=== PATIENT | female | born 1995 | race Caucasian/White ===

== ENCOUNTER 2021-09-04 11:43 | Emergency (ER) | payer MEDICAID, SELFPAY ==
[2021-09-04 11:49] VITALS: BP 156/114; PULSE 104; RESP 18; TEMP 36.8; O2SAT 100; BMI 23.6
--- NOTE | 2021-09-04 12:49 | EX.ED.SAOD ---
HPI History of Present Illness Chief Complaint: Substance Abuse Informant: patient and spouse/S.O. Onset/Context/Timing Onset: Today Context: Gradual Onset Timing: Continuous Quality: Shaky Location: Generalized Worsened by: Nothing Relieved by: Nothing Associated Symptoms Associated Symptoms: Positive for tremor; Negative for vomiting*, diarrhea*, fever*, rash*, seizure, change in mental status, suicidal ideation and homicidal ideation Narrative Narrative: Patient presents with alcohol withdrawal symptoms. Patient has a history of alcohol abuse. Patient was in alcohol detox in [place] 3 months ago. Patient started drinking again recently. Patient drinks 1-1/2 fifths of vodka per day. Patient's last drink was approximately 1 hour prior to arrival. states that patient drank nearly 1/2 a gallon of vodka since last night. Patient feels shaky all over. Currently, the patient denies any suicidal homicidal ideations. states that the patient was pink slipped earlier this week but was later discharged. [facility] Medical History (Updated 09/04/21 @ 17:[address] Yonny Candelaria DO) Anxiety Depression Medical History no medical history no medical history Allergy/AdvReac Type Severity Reaction Status Date / Time No Known Allergies Allergy Verified 09/04/21 12:56 Surgical History no surgical history no surgical history Social History (Updated 09/04/21 @ 12:[address] Yonny Candelaria DO) Smoking Status: Current every day smoker tobacco type: cigarettes alcohol intake: current alcohol intake frequency: 3 or more drinks per day Alcohol type: hard liquor ROS ROS ED Constitutional Constitutional ED: Reports chills and subjective; Denies fever(s) Eyes Eyes: Denies blurry vision or change in vision ENT ENT ED: Denies rhinorrhea or sore throat Cardiovascular Cardiovascular: Denies chest pain or palpitations Respiratory/Chest Respiratory/Chest: Denies cough or dyspnea Gastrointestinal Gastrointestinal: Reports nausea; Denies vomiting Genitourinary Genitourinary ED: Denies dysuria or hematuria Musculoskeletal Musculoskeletal: Reports back pain; Denies neck pain Integumentary Denies abscess or rash Neurologic Neurologic: Denies headache(s) or weakness Psychiatric Psychiatric: Denies suicidal ideation or suicidal thoughts Allergic/Immunologic Allergic/Immunologic ED: Denies mouth swelling or urticaria EXAM Physical Exam Const Vital Signs: 09/04/21 11:49 09/04/21 14:29 Temperature 98.2 F Temperature Source Temporal Pulse Rate 104 H 88 Respiratory Rate 18 Blood Pressure 156/114 H 127/79 H Blood Pressure Mean 128 95 Pulse Ox 100 97 Oxygen Delivery Method Room Air Room Air Positive well nourished and well developed General Appearance ED: well developed HEENT Reports moist mucous membranes Neck supple and no JVD Resp normal respiratory effort and clear to auscultation bilaterally Cardio regular rhythm and no murmurs Rate: tachycardic GI normal to inspection, nondistended, normoactive bowel sounds and non-tender Palpation: soft Extremity normal to inspection General Extremety ED: Negative for edema or tenderness General Extremity: Negative for edema Neuro oriented x3, CN's II-XII intact bilaterally and no sensory deficits noted Sensorium / Orientation: alert Motor Exam: strength 5/5 throughout Psych mental status grossly normal Skin no rashes or lesions noted MDM MDM MDM Narrative Medical decision making narrative: Patient was given a dose of phenobarbital here. Patient was given a dose of Ativan. CBC and basic metabolic profile were obtained and were essentially within normal limits. Urine toxin was positive for cannabinoids and benzodiazepines. Serum hCG was negative. Serum alcohol level is elevated at 295. bed worker was in to talk to the patient. She felt that the patient would benefit from being placed in a facility that could help with her depression and intermittent suicidal ideations as well as her alcohol abuse. She was able to get the patient placed at [facility]. Patient will be transferred there. [place] slip was placed on the chart. Patient and family understood and were agreeable with the plan. All questions were answered. Lab Data Attestation: I reviewed the patient's lab results. Labs: Laboratory Results - last 24 hr 09/04/21 09/04/21 09/04/21 12:49 13:10 13:10 WBC 8.0 RBC 4.23 Hgb 13.0 Hct 38.2 MCV 90.3 MCH 30.7 MCHC 34.0 RDW Std Deviation 44.7 H RDW Coeff of Ho 13.5 Plt Count 283 MPV 8.5 Immature Gran % (Auto) 0.300 Neut % (Auto) 40.2 L Lymph % (Auto) 49.7 H [place] % (Auto) 4.4 Eos % (Auto) 4.9 Baso % (Auto) 0.5 Absolute Neuts (auto) 3.2 Absolute Lymphs (auto) 3.97 Nucleated RBC % 0 Sodium 147 H Potassium 3.8 Chloride 113 H Carbon Dioxide 26.0 Anion Gap 8 BUN 7 Creatinine 0.58 Estim Creat Clear Calc 150.92 Est GFR (MDRD) Af Amer 159 Est GFR (MDRD) Non-Af 132 BUN/Creatinine Ratio 12.1 Glucose 91 Calcium 8.3 L Serum , Qual Urine Opiates Screen NEGATIVE Urine Methadone Screen NEGATIVE Ur Barbiturates Screen NEGATIVE Ur Phencyclidine Scrn NEGATIVE Ur Amphetamines Screen NEGATIVE U Methamphetamin-MDMA NEGATIVE U Benzodiazepines Scrn POSITIVE H Urine Cocaine Screen NEGATIVE U Cannabinoids Screen POSITIVE H Ur Drug Screen Comment Ethyl Alcohol 09/04/21 09/04/21 13:10 13:10 WBC RBC Hgb Hct MCV MCH MCHC RDW Std Deviation RDW Coeff of Ho Plt Count MPV Immature Gran % (Auto) Neut % (Auto) Lymph % (Auto) [place] % (Auto) Eos % (Auto) Baso % (Auto) Absolute Neuts (auto) Absolute Lymphs (auto) Nucleated RBC % Sodium Potassium Chloride Carbon Dioxide Anion Gap BUN Creatinine Estim Creat Clear Calc Est GFR (MDRD) Af Amer Est GFR (MDRD) Non-Af BUN/Creatinine Ratio Glucose Calcium Serum , Qual NEGATIVE Urine Opiates Screen Urine Methadone Screen Ur Barbiturates Screen Ur Phencyclidine Scrn Ur Amphetamines Screen U Methamphetamin-MDMA U Benzodiazepines Scrn Urine Cocaine Screen U Cannabinoids Screen Ur Drug Screen Comment Ethyl Alcohol 295.0 Discharge Plan Triage Chief Complaint: Substance Abuse ED Provider: Yonny Candelaria Dx/Rx/DC Orders Clinical Impression: Alcohol withdrawal, Depression with suicidal ideation Primary Care Provider: Care Physician,No Primary Referrals: Care Physician,No Primary [Primary Care Provider] - Disposition Disposition: Psychiatric Hospital or Unit Discharge Location: Other Acute [facility]
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
[2021-09-04] MEDS: Phenobarbital 32.4 MG Tablet 64.8 MG PO (13:17)
[2021-09-04] MEDS: LORazepam 2 MG/ML Syringe IM (13:18)
[2021-09-04 13:20] LABS: Absolute Lymphocyte Count 3.97 X10^3/uL (0.83-4.51); Absolute Neutrophil Count 3.2 X10^3/uL (2.0-7.7); Basophil# 0.04 X10^3/uL; Basophil% 0.5 % (0-1); Eosinophil# 0.39 X10^3/uL; Eosinophils% 4.9 % (0-5); Hematocrit 38.2 % (37-47); Lymphocyte # 3.97 X10^3/ul (0.83-4.51); Lymphocyte % 49.7 % (19-41); Mean Corpuscular Hgb 30.7 pg (27.0-32.0); Mean Corpuscular Volume 90.3 fL (81-99); Mean Platelet Vol. 8.5 fl (6.2-12.0); Monocyte# 0.35 X10^3/uL; Monocyte% 4.4 % (0-10); NRBC Flagged by Analyzer 0 % (0-5); Neutrophil # 3.22 X10^3/uL (2.7-7.7); Neutrophil % 40.2 % (47-70); Platelet Count 283 K/mm3 (150-450); RBC Distribution Width CV 13.5 % (11.6-14.6); RBC Distribution Width SD 44.7 fl (35.1-43.9); Red Blood Count 4.23 M/mm3 (4.2-5.4)
[2021-09-04 13:33] LABS: Internal QC Validated? YES +Cl - CLEAR BKGD; Pregnancy, Serum, hCG Quali. NEGATIVE Negative
[2021-09-04 13:38] LABS: Anion Gap 8 (5-15); BUN 7 mg/dL (7-18); BUN/Creat Ratio 12.1 RATIO (10-20); Calcium,Total 8.3 mg/dL (8.5-10.1); Chloride 113 mmol/L (98-107); Creatinine, Serum 0.58 mg/dL (0.55-1.02); EST Glomerular Filtration Rate 132 mL/min (>60); Est Glom Filt Rate - Afr Amer 159 mL/min (>60); Estimated Creatinine Clearance 150.92 ml/min; Glucose 91 mg/dL (74-106); Potassium 3.8 mmol/L (3.5-5.1); Sodium Level 147 mmol/L (136-145)
[2021-09-04 13:46] LABS: Amphetamine Urine VISTA NEGATIVE (<1000 ng/mL); Barbiturate Urine VISTA NEGATIVE (< 200 ng/mL); Benzodiazepine Urine VISTA POSITIVE (< 200 ng/mL); Cocaine Urine VISTA NEGATIVE (< 300 ng/mL); Ecstacy Urine VISTA NEGATIVE (< 500 ng/mL); Methadone Urine VISTA NEGATIVE (< 300 ng/mL); PCP Urine VISTA NEGATIVE (< 25 ng/mL); THC Urine VISTA POSITIVE (< 50 ng/mL); Vista UDS pH Range 6
[2021-09-04 14:29] VITALS: BP 127/79; PULSE 88; O2SAT 97
--- NOTE | 2021-09-04 14:38 | CM.ED ---
Referral faxed to [facility]. Carolina Benjamin, INTERACTIVE MEDIA DESIGNER, MATHEMATICS IMPROVEMENT TEACHER
--- NOTE | 2021-09-04 15:05 | CM.ED ---
Call to [facility] to check on status of referral. Referral has been received and under review at this time. Carolina Benjamin, RNP, RELATIONSHIP COUNSELOR
--- NOTE | 2021-09-04 16:10 | CM.ED ---
Addendum entered by Connie Benjamin 09/04/21 16:19: Received call from [facility]. Not a dual diagnosis unit. Original Note: Patient declined at [facility] at they do not take straight Medicaid for this patient. Call to [facility], at capacity. Call to [facility], do not do detox. Call to [facility], left voicemail with intake. Call to [facility], left message with intake. Call to [facility], no beds. Call to [facility], do not take Medicaid. Discussed with registration as patient's insurance is showing Medicaid and not a managed plan. Facilities are declining patient due to straight Medicaid coverage. Registration reports patient is active with [employer]. Updated [facility]. Pending review. Carolina Benjamin MSW, FOOTWEAR STITCHER
--- NOTE | 2021-09-04 16:21 | CM.ED ---
Call from nursing, patient becoming anxious, wanting to call . Met with patient in room. Re-explained [place] and informed working on placement. Patient verbalized understanding. Patient complaining of nausea and shakes. Emotional support provided. Updated nursing and Dr. Candelaria. Carolina Benjamin, PATENT PROSECUTION PARALEGAL, WEB OPERATIONS SPECIALIST
[2021-09-04] MEDS: Ondansetron 4 MG/2 ML Vial IV (16:29)
--- NOTE | 2021-09-04 16:30 | CM.ED ---
Referral faxed to [facility]. Patient pending at [facility] and [place]. Carolina Benjamin, PIANO TECHNICIAN, INTEGRATED LOGISTICS PROGRAMS DIRECTOR
--- NOTE | 2021-09-04 17:05 | CM.ED ---
SOCIAL WORK Patient accepted to [facility] by Dr. Coronel to the [facility]. Nurse to call report to (ask for [facility]). Call to [facility], ETA 90 minutes. Patient and staff updated. Carolina Benjamin MSW, EMERGENCY MEDICINE NURSE PRACTITIONER
[2021-09-04 18:01] VITALS: BP 100/49; PULSE 111; RESP 16; O2SAT 95
[2021-09-04] MEDS: Ondansetron ODT 4 MG Tablet PO (18:40)
[2021-09-04] MEDS: LORazepam 1 MG Tablet PO (18:41)
[2021-09-04] MEDS: Phenobarbital 32.4 MG Tablet PO (18:41)
--- NOTE | 2021-09-04 18:47 | ED.RN ---
attempted to call report. was n hold for a lengthy amount of time.
--- NOTE | 2021-09-04 18:52 | CM.ED ---
notified of discharge to [facility]. Carolina Benjamin, DOCUMENT PROCESSOR, PAY PER CLICK STRATEGIST
== END 2021-09-04 18:51 ==
PROVIDERS: Emergency Provider Emergency Medicine
DX: F10.239 Alcohol dependence with withdrawal, unspecified (principal); F32.A Depression, unspecified; R45.851 Suicidal ideations; F17.210 Nicotine dependence, cigarettes, uncomplicated
CPT/HCPCS: 80048; 80307; 82077; 84703; 85025; 87426; 96372; 96374; 99285; A4216; J2405

== ENCOUNTER 2023-03-02 18:48 | Inpatient (IN) | payer MEDICAID, SELFPAY ==
[2023-03-02 18:51] VITALS: BP 139/97; PULSE 109; RESP 16; TEMP 35.8; O2SAT 99; BMI 28.1
[2023-03-02 19:50] LABS: Amphetamine Urine VISTA NEGATIVE (<1000 ng/mL); Barbiturate Urine VISTA NEGATIVE (< 200 ng/mL); Benzodiazepine Urine VISTA NEGATIVE (< 200 ng/mL); Cocaine Urine VISTA NEGATIVE (< 300 ng/mL); Ecstacy Urine VISTA NEGATIVE (< 500 ng/mL); Methadone Urine VISTA NEGATIVE (< 300 ng/mL); PCP Urine VISTA NEGATIVE (< 25 ng/mL); THC Urine VISTA NEGATIVE (< 50 ng/mL); Vista UDS pH Range 6
[2023-03-02] MEDS: LORazepam 1 MG Tablet PO (19:56)
[2023-03-02] MEDS: Ondansetron ODT 4 MG Tablet PO (19:56)
--- NOTE | 2023-03-02 20:16 | EX.ED.SAOD ---
HPI History of Present Illness Chief Complaint: ETOH Intox Detail of Chief Complaint: Consuming a gallon of wine per day Informant: patient and friend Onset/Context/Timing Onset: Days Context: Sudden Onset Timing: Continuous Quality: Consuming a gallon of wine Location: Not applicable Current Severity: Severe Maximum Severity: Severe Worsened by: Patient is going through a divorce. She was sober for over 15 months. She Associated Symptoms Associated Symptoms: Positive for vomiting*, tremor and palpatations; Negative for diarrhea*, fever*, rash*, seizure, change in mental status, trauma, sex for drugs* or *HIV Risk Factors:Consider testing if last test > 6 months Narrative Narrative: Patient is a 28-year-old woman who apparently is under significant stress and going through a divorce. She started drinking heavily. She is drinking a gallon of wine a day. Friend brought her in. She did go through detox at [facility] approximate 16 months ago. She was sober until things changed in her life. She does complain of palpitations, tremors. Patient is very soft-spoken. She speaks slowly. Prior similar symptoms: Yes Recent Illness/Hospitalization: No PFSH PFSH Medical History Alcohol abuse Anxiety Bipolar disorder Depression GERD (gastroesophageal reflux disease) Migraines Smoker Home Medications benztropine 2 mg tablet 1 mg PO DAILY 03/02/23 [History Last Taken Unknown] quetiapine 200 mg tablet 200 mg PO QHS 03/02/23 [History Last Taken Unknown] trazodone 50 mg tablet 50 mg PO QHS 03/02/23 [History Last Taken Unknown] Allergy/AdvReac Type Severity Reaction Status Date / Time No Known Allergies Allergy Verified 03/02/23 18:49 Surgical History H/O: Social History (Updated 03/02/23 @ 20:[address] Kentrell Washington MD) household members: none Smoking Status: Current every day smoker tobacco type: cigarettes alcohol intake: current alcohol intake frequency: 3 or more drinks per day Alcohol type: hard liquor ROS ROS ED Constitutional Constitutional ED: Denies chills, fever(s), subjective, sweats or weight loss Eyes Eyes: Denies blurry vision, change in vision or diplopia ENT ENT ED: Denies ear pain, rhinorrhea or sore throat Cardiovascular Cardiovascular: Reports palpitations; Denies chest pain, orthopnea or racing heartbeat Respiratory/Chest Respiratory/Chest: Denies cough, dyspnea, dyspnea on exertion or orthopnea Gastrointestinal Gastrointestinal: Reports nausea and vomiting; Denies abdominal pain Genitourinary Genitourinary ED: Denies dysuria or urinary frequency Musculoskeletal Musculoskeletal: Denies arthralgias, back pain, myalgias or neck pain Integumentary Denies rash Neurologic Neurologic: Denies headache(s), paresthesias or weakness Psychiatric Psychiatric: Reports anxiety and depression; Denies suicidal ideation Hematologic/Lymphatic Hematologic/Lymphatic: Denies easy bleeding or easy bruising EXAM Physical Exam Const Vital Signs: 03/02/23 18:51 Temperature 96.4 F L Temperature Source Temporal Pulse Rate 109 H Respiratory Rate 16 Blood Pressure 139/97 H Blood Pressure Mean 111 Pulse Ox 99 Oxygen Delivery Method Room Air Positive well nourished and well developed Constitutional Narrative: Patient appears ill and slightly pale. She reports she is very nauseous. She has not vomited today. General Appearance ED: well developed; Negative for pallor HEENT Reports moist mucous membranes HEENT Narrative: Head is normocephalic. Ears are normal. Nares patent. Posterior pharynx is normal. Uvula is midline. There is no deviation with protrusion. atraumatic Eyes PERRL and EOMs intact bilaterally General Eye ED: Negative for pale conjunctiva or scleral icterus Neck no lymphadenopathy, supple and no JVD Chest Wall inspection of chest normal and palpation of chest normal Resp normal respiratory effort and clear to auscultation bilaterally Cardio regular rhythm, S1 normal heart sound, S2 normal heart sound and no murmurs Rate: tachycardic GI soft to palpation, non-tender, non-distended and no masses Back/Spine no CVA tenderness Thoracic Spine / Upper Back: Negative for thoracic spinal tenderness Lumbar Spine / Lower Back: Negative for lumbar spinal tenderness Extremity Extremity Narrative: No acrocyanosis. No clubbing. General Extremety ED: Negative for edema, tenderness or other findings General Extremity: Negative for edema or other findings Neuro oriented x3, CN's II-XII intact bilaterally and no sensory deficits noted Neuro Narrative: Patient has no clonus. Reflexes are 3+. Rell Coma Scale: document GCS findings Spontaneous Obeys Commands Oriented 15 Sensorium / Orientation: alert Psych thought process normal Attitude: No belligerent, No agitated, No aggressive and No hostile Mood & Affect: depressed Skin General Skin Exam: Negative for jaundice or pallor Lesions: no lesions Rashes: no rashes MDM MDM MDM Narrative Medical decision making narrative: Labs for addiction medicine were initiated. I was informed by nurse that her alcohol scale was elevated. She requested Zofran for nausea and vomiting and Ativan for her tremors and tachycardia. Patient was treated with 4 mg of Zofran ODT and 1 mg of Ativan. Suspect patient started drinking due to social stresses and divorce. Will contact hospitalist for admission. History & Record Review Discussion w/independent historian: Patient and Friend Additional record(s) reviewed:: Prior inpatient record (For inpatient detox) and Prior labs Lab Data Attestation: I reviewed the patient's lab results. Lab results narrative: Tox screen is negative. Labs: Laboratory Results - last 24 hr 03/02/23 19:26 Urine Opiates Screen NEGATIVE Urine Methadone Screen NEGATIVE Ur Barbiturates Screen NEGATIVE Ur Phencyclidine Scrn NEGATIVE Ur Amphetamines Screen NEGATIVE MDMA (Ecstasy) Screen NEGATIVE U Benzodiazepines Scrn NEGATIVE Urine Cocaine Screen NEGATIVE U Cannabinoids Screen NEGATIVE Ur Drug Screen Comment Discharge Plan Triage Chief Complaint: ETOH Intox ED Provider: Kentrell Washington Dx/Rx/DC Orders Clinical Impression: Alcoholism, Sinus tachycardia, Situational depression Prescriptions: No Action trazodone 50 mg Tablet 50 mg PO QHS quetiapine 200 mg tablet 200 mg PO QHS Label Comments: take 1 tablet by mouth nightly benztropine [Cogentin] 2 mg Tablet 1 mg PO DAILY Primary Care Provider: Care Physician,No Primary Referrals: [facility] Doctor,Out of [Non-Staff] - Disposition Disposition: Home, Self Care
--- NOTE | 2023-03-02 20:35 | PCM.HP.STD ---
[facility] - General General Date of Admission: 03/02/23 Date of Service: 03/02/23 Chief Complaint: Desire for detoxification HPI Narrative SOFIA LAGUERRE, is a 28 F with a significant history of previous suicidal ideations; bipolar disorder and alcoholism who presents to emergency department for help with alcohol detoxification. She reports alcohol withdrawal symptoms of heart racing; tremors; visual hallucinations; and tactile hallucinations. Last time she drank was about 2 hours before presentation. Patient has been drinking for about 10 years. Also she reports nausea. She had no vomiting on the day of presentation but a day before presentation she vomited. She drinks about a gallon of vodka each day. Reportedly she told the ED doctor that she has been drinking wine but upon further questioning she admitted that she drinks vodka and not wine. She was sober for a while and resume drinking because of a divorce that she is going through. Reportedly she resumed drinking about a year and a half ago. She feels depressed, she has poor appetite, she cannot concentrate, she lacks interest, she has insomnia. However, she denies suicidal or homicidal ideations. She reports starting to smoke about a week ago and she smokes about half pack per day. She denies use of marijuana or any other drug Patient was in the ED room with his boyfriend who supplemented history. [facility] Medical History Alcohol abuse Anxiety Bipolar disorder Depression GERD (gastroesophageal reflux disease) Migraines Smoker Home Medications benztropine 2 mg tablet 1 mg PO QHS Check with primary doctor 03/02/23 [History Last Taken 02/25/23] doxepin 50 mg capsule 50 mg PO QHS Check with primary doctor 03/02/23 [History Last Taken 02/27/23] prazosin 1 mg capsule 1 mg PO QHS Check with primary doctor 03/02/23 [History Last Taken 02/27/23] quetiapine 200 mg tablet 200 mg PO QHS Check with primary doctor 03/02/23 [History Last Taken 02/27/23] Allergy/AdvReac Type Severity Reaction Status Date / Time No Known Allergies Allergy Verified 03/02/23 18:49 Family History Other Colon cancer Diabetes Hypertension Prostate cancer Surgical History H/O: Social History household members: none Smoking Status: Current every day smoker tobacco type: cigarettes alcohol intake: current alcohol intake frequency: 3 or more drinks per day Alcohol type: hard liquor ROS ROS Narrative Pertinent positives and pertinent negatives as noted in HPI. All other systems were reviewed and are negative Vital Signs Vital Signs Vital Signs: 03/02/23 18:51 Temperature 96.4 F L Temperature Source Temporal Pulse Rate 109 H Respiratory Rate 16 Blood Pressure 139/97 H Blood Pressure Mean 111 Pulse Ox 99 Oxygen Delivery Method Room Air Weight Weight: 86.409 kg Body Mass Index (BMI) 28.1 Physical Exam Narrative Physical exam: General: Well-nourished, well-developed. Head: Normocephalic, atraumatic, no tenderness Eyes: Vision is grossly intact. EOMI ENT, no trauma, moist mucous membranes, no rhinorrhea Neck: Nontender, No thyromegaly. CVS: Regular rate and rhythm. S1-S2 present. No murmur, gallop or rub. Respiratory : clear to auscultation bilaterally, chest wall nontender Abdomen: Soft, nontender, nondistended, normal bowel sounds, no masses : Deferred Back: Nontender, no CVA tenderness, no midline spinal tenderness, deformities, step-offs Extremities: Nontender full range of motion, no trauma Skin: Normal color, no trauma, abrasions Neuro: Alert, oriented, cranial nerves II through XII grossly intact. Psychiatry:Blunted affect. Looks depressed. Not anxious. Results Lab / Micro Data Result Diagrams: 03/02/23 21:25 Labs: Laboratory Results - last 24 hr 03/02/23 19:26: Urine Opiates Screen NEGATIVE, Urine Methadone Screen NEGATIVE, Ur Barbiturates Screen NEGATIVE, Ur Phencyclidine Scrn NEGATIVE, Ur Amphetamines Screen NEGATIVE, MDMA (Ecstasy) Screen NEGATIVE, U Benzodiazepines Scrn NEGATIVE, Urine Cocaine Screen NEGATIVE, U Cannabinoids Screen NEGATIVE, Ur Drug Screen Comment Assessment & Plan Assessment/Plan (1) Alcoholism: (2) Situational depression: (3) Bipolar disorder: QUALIFIERS: Active/Remission status: currently active Current bipolar episode type: depressed Current episode severity: moderate Qualified Code(s): F31.32 - Bipolar disorder, current episode depressed, moderate (4) Tobacco abuse: (5) Full code status: PLAN: Plan Alcohol dependence and desire for detoxification Urine test reviewed with a negative. Ethanol level on presentation was 275. AST and ALT is mildly elevated. Patient be started on phenobarbital and other adjunctive medications: Gabapentin as needed; dicyclomine as needed; Vistaril as needed; Imodium as needed; Zofran as needed; scheduled thiamine; and schedule folic acid. Monitor CIWA score Tobacco abuse Counseled Nicotine gum prescribed. Situational depression/bipolar disorder Not improving. Doxepin continued. Quetiapine continued. Benztropine continued. Zyprexa added to regimen DVT prophylaxis Low risk Encourage to ambulate Charges/Coding Visit Charges Inpatient E&M: 44973 Init Hosp L2
--- NOTE | 2023-03-02 21:51 | ED.RN ---
this RN attempt x3 for IV without success. previous RN multiple attempts as well.
[2023-03-02 21:53] VITALS: BP 139/97; PULSE 109; RESP 16; TEMP 35.8; O2SAT 99
--- NOTE | 2023-03-02 21:53 | ED.RN ---
Multiple unsuccessful IV attempt made by multiple nurses. Dr Washington aware and Dr Baptiste aware and states patient does not need an IV now. Pt can try and drink some oral fluids and IV attempts can be made again if needed.
[2023-03-02 22:02] LABS: ALB/GLOB Ratio 0.9 RATIO (0.9-2.4); AST(SGOT) 76 U/L (15-37); Alanine Aminotransfer ALT/SGPT 119 U/L (13-56); Albumin, Serum 3.9 g/dL (3.2-5.0); Alkaline Phosphatase 87 U/L (45-117); Anion Gap 11 (5-15); BUN 13 mg/dL (7-18); BUN/Creat Ratio 18.1 RATIO (10-20); Calcium,Total 8.7 mg/dL (8.5-10.1); Chloride 107 mmol/L (98-107); Creatinine, Serum 0.72 mg/dL (0.55-1.02); EST Glomerular Filtration Rate 101 mL/min (>60); Est Glom Filt Rate - Afr Amer 122 mL/min (>60); Globulin 4.5 g/dL (2.2-4.2); Glucose 76 mg/dL (74-106); Potassium 3.8 mmol/L (3.5-5.1); Protein, Total 8.4 g/dL (6.4-8.2); Sodium Level 142 mmol/L (136-145)
[2023-03-02 22:03] LABS: Internal QC Validated? YES +Cl - CLEAR BKGD; Pregnancy, Serum, hCG Quali. NEGATIVE Negative
[2023-03-02 22:20] VITALS: BMI 29.0
[2023-03-02 22:24] VITALS: BP 126/69; PULSE 99; RESP 18; TEMP 36.9; O2SAT 96
[2023-03-02] MEDS: Phenobarbital 32.4 MG Tablet 64.8 MG PO (22:51)
[2023-03-02] MEDS: Gabapentin 300 MG Capsule PO (22:51)
[2023-03-02] MEDS: Ondansetron 8 MG Tablet PO (22:51)
[2023-03-03] MEDS: QUEtiapine 100 MG Tablet 200 MG PO ×2 (01:00→21:44)
[2023-03-03] MEDS: DOXEPIN HCL 50 MG CAPSULE PO ×2 (01:00→21:46)
[2023-03-03] MEDS: Doxazosin 1 MG Tablet PO (01:00)
[2023-03-03] MEDS: Phenobarbital 32.4 MG Tablet 64.8 MG PO ×6 (02:39→21:44)
[2023-03-03 06:18] VITALS: BP 103/63; PULSE 92; RESP 16; TEMP 36.5; O2SAT 95
[2023-03-03 09:45] VITALS: BP 98/67; PULSE 80; RESP 16; TEMP 36.8; O2SAT 100
[2023-03-03] MEDS: Folic Acid 1 MG Tablet PO (09:49)
[2023-03-03] MEDS: Benztropine 2 MG Tablet 1 MG PO (09:49)
[2023-03-03] MEDS: Thiamine Hydrochloride 100 MG Tablet PO (09:49)
--- NOTE | 2023-03-03 13:45 | PCM.PN.HOSP ---
Reason for Visit Reason for Visit: Diagnoses Alcohol dependence, uncomplicated (03/02/23) Bipolar disorder, current episode depressed, moderate (03/02/23) Adjustment disorder with depressed mood (03/02/23) Tobacco use (03/02/23) Other specified health status (03/02/23) Subjective Subjective Reports feeling tired and restless. Earlier had endorsed visual hallucinations at this time reports that she has not had any since this morning Objective Data Objective Data Vital Signs: Vital Signs Temp Pulse Resp BP Pulse Ox O2 Del Method 98.2 F 80 16 98/67 100 Room Air 03/03/23 09:45 03/03/23 09:45 03/03/23 09:45 03/03/23 09:45 03/03/23 09:45 03/03/23 09:45 Oxygen Delivery Method Room Air Weight: 89.2 kg Body Mass Index (BMI) 29.0 Intake & Output: Intake and Output for Last 24 Hours 03/01/23 03/02/23 03/03/23 23:59 23:59 23:59 Intake Total 250 / 250 Balance 250 / 250 Lab / Micro Data Result Diagrams: 03/02/23 21:25 Labs: Laboratory Results - last 24 hr 03/02/23 19:26: Urine Opiates Screen NEGATIVE, Urine Methadone Screen NEGATIVE, Ur Barbiturates Screen NEGATIVE, Ur Phencyclidine Scrn NEGATIVE, Ur Amphetamines Screen NEGATIVE, MDMA (Ecstasy) Screen NEGATIVE, U Benzodiazepines Scrn NEGATIVE, Urine Cocaine Screen NEGATIVE, U Cannabinoids Screen NEGATIVE, Ur Drug Screen Comment 03/02/23 21:25: Sodium 142, Potassium 3.8, Chloride 107, Carbon Dioxide 24.0, Anion Gap 11, BUN 13, Creatinine 0.72, Estim Creat Clear Calc 119.40, Est GFR (MDRD) Af Amer 122, Est GFR (MDRD) Non-Af 101, BUN/Creatinine Ratio 18.1, Glucose 76, Calcium 8.7, Total Bilirubin 0.30, AST 76 H, ALT 119 H, Alkaline Phosphatase 87, Total Protein 8.4 H, Albumin 3.9, Globulin 4.5 H, Albumin/Globulin Ratio 0.9 03/02/23 21:25: Ethyl Alcohol 275.0 03/02/23 21:50: Serum , Qual NEGATIVE Physical Exam Narrative General: Wakes up easily, appears tired though however not in acute distress HEENT: Atraumatic, normocephalic Eyes: Anicteric, normal conjunctiva, extraocular movements grossly intact Neck: Supple Respiratory: Clear to auscultation bilaterally, normal respiratory effort Cardiovascular: Regular rate and rhythm GI: Soft, nontender, nondistended Extremities: No edema Musculoskeletal: Moving all extremities Neuro: No overt focal neurological deficits Skin: No rashes appreciated Psych: Cooperative Assessment & Plan Assessment/Plan (1) Alcoholism: (2) Situational depression: (3) Bipolar disorder: QUALIFIERS: Active/Remission status: currently active Current bipolar episode type: depressed Current episode severity: moderate Qualified Code(s): F31.32 - Bipolar disorder, current episode depressed, moderate (4) Tobacco abuse: (5) Full code status: PLAN: Plan #Alcohol dependence and desire for detoxification Urine test reviewed with a negative. Ethanol level on presentation was 275. AST and ALT is mildly elevated. Patient be started on phenobarbital and other adjunctive medications: Gabapentin as needed; dicyclomine as needed; Vistaril as needed; Imodium as needed; Zofran as needed; scheduled thiamine; and schedule folic acid. Monitor CIWA score -03/03: Continue phenobarb detox #Tobacco abuse Counseled Nicotine gum prescribed. #Situational depression/bipolar disorder per history Doxepin continued. Quetiapine continued. Benztropine continued. -03/03: Difficult to assess which portion is substance-induced but her Seroquel has been continued as well as her benztropine and doxepin, also on prazosin which appears to have been interchanged for doxazosin. Earlier had endorsed visual hallucinations which may have been secondary to withdrawal and she had very good insight into this and they have resolved DVT prophylaxis Low risk Encourage to ambulate Charges/Coding Visit Charges Inpatient E&M: 44553 Subs Hosp L2
[2023-03-03 14:53] VITALS: BP 113/72; PULSE 84; RESP 16; TEMP 37.2; O2SAT 98
[2023-03-03] MEDS: Gabapentin 300 MG Capsule PO (14:57)
[2023-03-03 21:12] VITALS: BP 93/61; PULSE 68; RESP 12; TEMP 36.6; O2SAT 95
[2023-03-03] MEDS: traZODone 50 MG Tablet PO (21:45)
[2023-03-03] MEDS: Acetaminophen 325 MG Tablet 650 MG PO (22:26)
[2023-03-04 02:00] VITALS: BP 112/69; PULSE 65; RESP 12; TEMP 36.6; O2SAT 97
[2023-03-04] MEDS: Phenobarbital 32.4 MG Tablet 64.8 MG PO ×3 (02:23→09:32)
[2023-03-04 06:00] VITALS: BP 113/76; PULSE 70; RESP 12; TEMP 36.4; O2SAT 97
[2023-03-04 09:12] VITALS: BP 120/63; PULSE 74; RESP 17; TEMP 36.6; O2SAT 100
[2023-03-04] MEDS: Benztropine 2 MG Tablet 1 MG PO (09:32)
[2023-03-04] MEDS: Folic Acid 1 MG Tablet PO (09:33)
[2023-03-04] MEDS: Thiamine Hydrochloride 100 MG Tablet PO (09:33)
--- NOTE | 2023-03-04 09:47 | ADDICTION ---
This food writer met with PT to conduct ASAM, MSE, AUDIT, DUDIT assessments and to plan for d/c. PT A+Ox4 and participated actively. All assessments completed and placed in PT's chart. PT plans to f/u with follow-up treatment services, however she wanted to discuss it with her family upon d/c. This worker offered resources based on her listed wants and needs. She agreed to follow up with [facility]. PT did not indicate a need for transportation post d/c from [facility].
[2023-03-04 10:18] VITALS: BP 120/63; PULSE 74; RESP 17; TEMP 36.8; O2SAT 100
--- NOTE | 2023-03-04 15:19 | PCM.PN.HOSP ---
Reason for Visit Reason for Visit: Diagnoses Alcohol dependence, uncomplicated (03/02/23) Bipolar disorder, current episode depressed, moderate (03/02/23) Adjustment disorder with depressed mood (03/02/23) Tobacco use (03/02/23) Other specified health status (03/02/23) Subjective Subjective Patient resting in bed, reports feeling achy and somewhat shaky, denied any other visual hallucinations PATIENT LEFT AMA Objective Data Objective Data Vital Signs: Vital Signs Temp Pulse Resp BP Pulse Ox O2 Del Method 98.2 F 74 17 120/63 100 Room Air 03/04/23 10:18 03/04/23 10:18 03/04/23 10:18 03/04/23 10:18 03/04/23 10:18 03/04/23 10:18 Oxygen Delivery Method Room Air Weight: 89.2 kg Body Mass Index (BMI) 29.0 Intake & Output: Intake and Output for Last 24 Hours 03/02/23 03/03/23 03/04/23 23:59 23:59 23:59 Intake Total 250 / 850 600 / 600 Balance 250 / 850 600 / 600 Lab / Micro Data Result Diagrams: 03/02/23 21:25 Physical Exam Narrative General: Wakes up and answers questions appropriately HEENT: Atraumatic, normocephalic Eyes: Eyes resting comfortably Neck: Supple Respiratory: normal respiratory effort Cardiovascular: no edema appreciated GI: nondistended Extremities: Moving all extremities Neuro: No overt focal neurological deficits Psych: Superficially cooperative Assessment & Plan Assessment/Plan (1) Alcoholism: (2) Situational depression: (3) Bipolar disorder: QUALIFIERS: Active/Remission status: currently active Current bipolar episode type: depressed Current episode severity: moderate Qualified Code(s): F31.32 - Bipolar disorder, current episode depressed, moderate (4) Tobacco abuse: (5) Full code status: PLAN: Plan #Alcohol dependence and desire for detoxification Urine test reviewed with a negative. Ethanol level on presentation was 275. AST and ALT is mildly elevated. Patient be started on phenobarbital and other adjunctive medications: Gabapentin as needed; dicyclomine as needed; Vistaril as needed; Imodium as needed; Zofran as needed; scheduled thiamine; and schedule folic acid. Monitor CIWA score -03/03: Continue phenobarb detox -03/04: Patient evaluated in the a.m. and reported feeling achy but no other complaints. PATIENT LEFT AMA #Tobacco abuse Counseled Nicotine gum prescribed. #Situational depression/bipolar disorder per history Doxepin continued. Quetiapine continued. Benztropine continued. -03/03: Difficult to assess which portion is substance-induced but her Seroquel has been continued as well as her benztropine and doxepin, also on prazosin which appears to have been interchanged for doxazosin. Earlier had endorsed visual hallucinations which may have been secondary to withdrawal and she had very good insight into this and they have resolved -03/04: Patient denied any further visual hallucinations. PATIENT LEFT AMA DVT prophylaxis Low risk Encourage to ambulate Charges/Coding Visit Charges Inpatient E&M: 16911 Subs Hosp L2
== END 2023-03-04 13:38 | disposition left against medical advice (07) | DRG 770 ==
LOC: ED 20:22 → MS3 21:24
PROVIDERS: Admitting Provider Hospitalist; Emergency Provider Emergency Medicine; Visit Provider Internal Medicine
DX: F10.251 Alcohol dependence with alcohol-induced psychotic disorder with hallucinations (principal); F17.210 Nicotine dependence, cigarettes, uncomplicated; F31.32 Bipolar disorder, current episode depressed, moderate; F43.21 Adjustment disorder with depressed mood; Y90.8 Blood alcohol level of 240 mg/100 ml or more; Z63.5 Disruption of family by separation and divorce; Z53.29 Procedure and treatment not carried out because of patient's decision for other reasons
CPT/HCPCS: 80053; 80307; 82077; 84703; 99282; A4216

== ENCOUNTER 2023-03-26 09:55 | Inpatient (IN) | payer MEDICAID, SELFPAY ==
[2023-03-26 10:00] VITALS: BP 168/98; PULSE 88; RESP 18; TEMP 35.8; O2SAT 98; BMI 25.1
[2023-03-26 10:12] VITALS: PULSE 99; RESP 16; TEMP 36.4; O2SAT 99
--- NOTE | 2023-03-26 10:17 | EX.ED.DYSGE1 ---
HPI History of Present Illness Chief Complaint: Substance Abuse Informant: patient and family Narrative Narrative: Patient presents requesting detox from alcohol. She is a history of alcoholism and drinks a half a gallon of vodka a day. She states she was tapering down her alcohol intake yesterday and her last drink was sometime overnight. She is shaky and nauseated. She has had blood in her vomitus overnight. Patient was here about 3 weeks ago for detox and signed out AMA after 2 days. She denies any other drug use. Denies possibility of . PFSH PFSH Medical History Alcohol abuse Anxiety Bipolar disorder Depression GERD (gastroesophageal reflux disease) Migraines Smoker Home Medications benztropine 2 mg tablet 1 mg PO QHS Check with primary doctor 03/02/23 [History Last Taken 02/25/23] doxepin 50 mg capsule 50 mg PO QHS Check with primary doctor 03/02/23 [History Last Taken 02/27/23] prazosin 1 mg capsule 1 mg PO QHS Check with primary doctor 03/02/23 [History Last Taken 02/27/23] quetiapine 200 mg tablet 200 mg PO QHS Check with primary doctor 03/02/23 [History Last Taken 02/27/23] Allergy/AdvReac Type Severity Reaction Status Date / Time hydroxyzine [From Vistaril] Allergy Intermediate Rash Verified 03/26/23 10:02 Family History Other Colon cancer Diabetes Hypertension Prostate cancer Surgical History H/O: Social History household members: none Smoking Status: Current every day smoker tobacco type: cigarettes alcohol intake: current alcohol intake frequency: 3 or more drinks per day Alcohol type: hard liquor ROS ROS ED Constitutional Constitutional ED: Denies chills or fever(s) Eyes Eyes: Denies change in vision or discharge from eye(s) ENT ENT ED: Denies discharge from eye(s), rhinorrhea or sore throat Cardiovascular Cardiovascular: Denies chest pain or palpitations Respiratory/Chest Respiratory/Chest: Denies cough or dyspnea Gastrointestinal Gastrointestinal: Reports abdominal pain, nausea, vomiting and other Details: Hematemesis ; Denies diarrhea Genitourinary Genitourinary ED: Denies dysuria Musculoskeletal Musculoskeletal: Denies back pain or extremity pain Integumentary Denies Abrasions or rash Neurologic Neurologic: Denies headache(s) or weakness Psychiatric Psychiatric: Denies anxiety or depression Allergic/Immunologic Allergic/Immunologic ED: Denies lip swelling or urticaria EXAM Physical Exam Const Vital Signs: 03/26/23 10:00 Temperature 96.5 F L Temperature Source Temporal Pulse Rate 88 Respiratory Rate 18 Blood Pressure 168/98 H Blood Pressure Mean 121 Pulse Ox 98 Oxygen Delivery Method Room Air Positive well nourished and well developed General Appearance ED: well developed HEENT Reports normocephalic and head/scalp atraumatic Eyes PERRL and EOMs intact bilaterally Neck supple Chest Wall inspection of chest normal and palpation of chest normal Resp normal respiratory effort and clear to auscultation bilaterally Cardio regular rate and regular rhythm GI non-tender Auscultation: hypoactive bowel sounds Palpation: soft Extremity normal to inspection Neuro oriented x3 Neuro Narrative: Anxious and shaky. Sensorium / Orientation: alert Psych Mood & Affect: anxious Skin no rashes or lesions noted MDM MDM MDM Narrative Medical decision making narrative: IV line established. Lab work for ED addiction medicine obtained. Patient given IV Ativan along with Zofran. She is given a dose of Protonix given her hematemesis. Lab Data Attestation: I reviewed the patient's lab results. Labs: Laboratory Results - last 24 hr 03/26/23 10:35 WBC 16.7 H RBC 4.69 Hgb 14.1 Hct 41.1 MCV 87.6 MCH 30.1 MCHC 34.3 RDW Std Deviation 45.5 H RDW Coeff of Ho 14.4 Plt Count 513 H MPV 8.5 Immature Gran % (Auto) 0.300 Neut % (Auto) 86.6 H Lymph % (Auto) 9.3 L [place] % (Auto) 3.5 Eos % (Auto) 0.0 Baso % (Auto) 0.3 Absolute Neuts (auto) 14.5 H Absolute Lymphs (auto) 1.55 Nucleated RBC % 0 Sodium 134 L Potassium 3.9 Chloride 95 L Carbon Dioxide 17.0 L Anion Gap 22 H BUN 18 Creatinine 0.83 Estim Creat Clear Calc 103.58 Est GFR (MDRD) Af Amer 104 Est GFR (MDRD) Non-Af 86 BUN/Creatinine Ratio 21.7 H Glucose 120 H Calcium 9.0 Total Bilirubin 0.80 AST 91 H ALT 67 H Alkaline Phosphatase 101 Total Protein 8.7 H Albumin 4.1 Globulin 4.6 H Albumin/Globulin Ratio 0.9 Serum , Qual NEGATIVE Ethyl Alcohol 61.0 Treatment and Re-Evaluation :: White count is elevated at 16.7 with 86% neutrophils. Hemoglobin is normal at 14.1. Chemistry studies reveal a sodium of 134 and a chloride of 95. Bicarb is slightly low at 17. Anion gap is 22. AST is 91 and ALT is 67. test is negative. EtOH is 61. Patient be given a liter of IV fluid. I will speak with hospitalist regarding admission. Discharge Plan Triage Chief Complaint: Substance Abuse ED Provider: Diane Watson Dx/Rx/DC Orders Clinical Impression: Desire for detoxification, Alcoholism Prescriptions: No Action quetiapine 200 mg tablet 200 mg PO QHS Patient Comments: take 1 tablet by mouth nightly benztropine [Cogentin] 2 mg Tablet 1 mg PO QHS doxepin 50 mg capsule 50 mg PO QHS prazosin 1 mg capsule 1 mg PO QHS Primary Care Provider: Care Physician,No Primary Referrals: Care Physician,No Primary [Primary Care Provider] - Disposition Disposition: Acute Care Hospital [facility]
[2023-03-26] MEDS: Ondansetron 4 MG/2 ML Vial IV (10:41)
[2023-03-26] MEDS: LORazepam 2 MG/ML Syringe 1 MG IV ×2 (10:41→21:27)
[2023-03-26 10:54] LABS: Absolute Lymphocyte Count 1.55 X10^3/uL (0.83-4.51); Absolute Neutrophil Count 14.5 X10^3/uL (2.0-7.7); Basophil# 0.05 X10^3/uL; Basophil% 0.3 % (0-1); Hematocrit 41.1 % (37-47); Hemoglobin 14.1 g/dL (12.0-15.0); Lymphocyte # 1.55 X10^3/ul (0.83-4.51); Lymphocyte % 9.3 % (19-41); Mean Corp Hgb Conc 34.3 g/dL (32-36); Mean Corpuscular Hgb 30.1 pg (27.0-32.0); Mean Corpuscular Volume 87.6 fL (81-99); Mean Platelet Vol. 8.5 fl (6.2-12.0); Monocyte# 0.58 X10^3/uL; Monocyte% 3.5 % (0-10); NRBC Flagged by Analyzer 0 % (0-5); Neutrophil # 14.48 X10^3/uL (2.7-7.7); Neutrophil % 86.6 % (47-70); Platelet Count 513 K/mm3 (150-450); RBC Distribution Width CV 14.4 % (11.6-14.6); RBC Distribution Width SD 45.5 fl (35.1-43.9); Red Blood Count 4.69 M/mm3 (4.2-5.4); White Blood Count 16.7 K/mm3 (4.4-11.0)
[2023-03-26 10:57] LABS: Internal QC Validated? YES +Cl - CLEAR BKGD; Pregnancy, Serum, hCG Quali. NEGATIVE Negative
[2023-03-26 11:01] LABS: ALB/GLOB Ratio 0.9 RATIO (0.9-2.4); AST(SGOT) 91 U/L (15-37); Alanine Aminotransfer ALT/SGPT 67 U/L (13-56); Albumin, Serum 4.1 g/dL (3.2-5.0); Alkaline Phosphatase 101 U/L (45-117); Anion Gap 22 (5-15); BUN 18 mg/dL (7-18); BUN/Creat Ratio 21.7 RATIO (10-20); Chloride 95 mmol/L (98-107); Creatinine, Serum 0.83 mg/dL (0.55-1.02); EST Glomerular Filtration Rate 86 mL/min (>60); Est Glom Filt Rate - Afr Amer 104 mL/min (>60); Estimated Creatinine Clearance 103.58 ml/min; Globulin 4.6 g/dL (2.2-4.2); Glucose 120 mg/dL (74-106); Potassium 3.9 mmol/L (3.5-5.1); Protein, Total 8.7 g/dL (6.4-8.2); Sodium Level 134 mmol/L (136-145)
--- NOTE | 2023-03-26 11:12 | NURSING ---
DR REMY FOR DR VERNON
[2023-03-26 11:13] VITALS: BP 132/76; PULSE 97; RESP 16; TEMP 36.4; O2SAT 99
--- NOTE | 2023-03-26 11:27 | NURSING ---
MED SURG JOPPERI ETOH DETOX
--- NOTE | 2023-03-26 11:30 | HP.PCM.HOS_ITS ---
HPI - General General Date of Service: 03/26/23 Chief Complaint: alcohol withdrawal HPI Narrative SOFIA LAGUERRE, is a 28 F who presents seeking treatment for alcohol withdrawal. Patient's last drink was yesterday. Since then, patient has just been feeling unwell with diffuse myalgias as well as vomiting. Patient had 4-5 episodes of hematemesis where she described as just globs of blood. Patient has not had any further hematemesis since 4 AM. Patient was here in February for alcohol withdrawal but left AGAINST MEDICAL ADVICE. Patient's reasoning was that she just felt cramped in the room. I asked her what was going to be different about it this time, she said that she is more motivated to quit. Patient was drinking about half a gallon of vodka per day. Denies any illicit drugs. PFSH Medical History Alcohol abuse Anxiety Bipolar disorder Depression GERD (gastroesophageal reflux disease) Migraines Smoker Home Medications benztropine 2 mg tablet 1 mg PO QHS Check with primary doctor 03/02/23 [History Last Taken 02/25/23] doxepin 50 mg capsule 50 mg PO QHS Check with primary doctor 03/02/23 [History Last Taken 02/27/23] prazosin 1 mg capsule 1 mg PO QHS Check with primary doctor 03/02/23 [History Last Taken 02/27/23] quetiapine 200 mg tablet 200 mg PO QHS Check with primary doctor 03/02/23 [History Last Taken 02/27/23] Allergy/AdvReac Type Severity Reaction Status Date / Time hydroxyzine [From Vistaril] Allergy Intermediate Rash Verified 03/26/23 10:02 Family History (Updated 03/26/23 @ 11:[address] Yonny Holt DO) Mother Alcoholism Other Colon cancer Diabetes Hypertension Prostate cancer Surgical History H/O: Social History household members: none Smoking Status: Current every day smoker tobacco type: cigarettes alcohol intake: current alcohol intake frequency: 3 or more drinks per day Alcohol type: hard liquor ROS ROS Narrative All review of systems were negative except as mentioned above in the history of present illness and the other review of systems. Vital Signs Vital Signs Vital Signs: 03/26/23 10:00 03/26/23 10:12 03/26/23 11:13 Temperature 35.8 C L 36.4 C L 36.4 C L Temperature Source Temporal Temporal Temporal Pulse Rate 88 99 97 Respiratory Rate 18 16 16 Blood Pressure 168/98 H 132/76 H Blood Pressure Mean 121 94 Pulse Ox 98 99 99 Oxygen Delivery Method Room Air Room Air Room Air Weight Weight: 77.111 kg Body Mass Index (BMI) 25.1 Physical Exam Const alert and no apparent distress HEENT normocephalic and head/scalp atraumatic Resp normal respiratory effort, no retractions, no use of accessory muscles and clear to auscultation bilaterally Cardio regular rate, regular rhythm, S1 normal heart sound and S2 normal heart sound GI normal to inspection, nondistended, normoactive bowel sounds, soft to palpation, non-tender and non-distended Extremity normal to inspection and full ROM Neuro Sensorium / Orientation: awake Results Lab / Micro Data 03/26/23 10:35 03/26/23 10:35 Labs: Laboratory Results - last 24 hr 03/26/23 10:35: WBC 16.7 H, RBC 4.69, Hgb 14.1, Hct 41.1, MCV 87.6, MCH 30.1, MCHC 34.3, RDW Std Deviation 45.5 H, RDW Coeff of Ho 14.4, Plt Count 513 H, MPV 8.5, Immature Gran % (Auto) 0.300, Neut % (Auto) 86.6 H, Lymph % (Auto) 9.3 L, [place] % (Auto) 3.5, Eos % (Auto) 0.0, Baso % (Auto) 0.3, Absolute Neuts (auto) 14.5 H, Absolute Lymphs (auto) 1.55, Nucleated RBC % 0, Sodium 134 L, Potassium 3.9, Chloride 95 L, Carbon Dioxide 17.0 L, Anion Gap 22 H, BUN 18, Creatinine 0.83, Estim Creat Clear Calc 103.58, Est GFR (MDRD) Af Amer 104, Est GFR (MDRD) Non-Af 86, BUN/Creatinine Ratio 21.7 H, Glucose 120 H, Calcium 9.0, Total Bilirubin 0.80, AST 91 H, ALT 67 H, Alkaline Phosphatase 101, Total Protein 8.7 H, Albumin 4.1, Globulin 4.6 H, Albumin/Globulin Ratio 0.9, Serum , Qual NEGATIVE, Ethyl Alcohol 61.0 Assessment & Plan Assessment/Plan (1) Alcohol withdrawal delirium, acute, hyperactive: PLAN: Active patient quit drinking on the March 25 Phenobarbital taper Additional agents to help with somatic complaints associated with her withdrawal. 182 with cysts and outpatient follow-up Patient had left AGAINST MEDICAL ADVICE during last admission. Patient states that she is more committed at this time. (2) Upper GI bleed: PLAN: Suspect due to Janny-Mao tear from retching Monitor hemoglobin Since patient is still nauseated, will give her IV fluids Start Protonix Consult GI PLAN: Plan Chronic psychiatric conditions * Bipolar disorder: Complicates care and long-term recovery. Currently stable. Continue with quetiapine, doxepin and benztropine VTE prophylaxis with SCDs Charges/Coding Visit Charges Inpatient E&M: 78415 Init Hosp L3
[2023-03-26 12:26] VITALS: RESP 18; BMI 26.4
[2023-03-26] MEDS: 0.9% Normal Saline 1,000 ML 150 ML IV (13:10)
[2023-03-26] MEDS: Phenobarbital 32.4 MG Tablet 64.8 MG PO ×3 (13:12→20:33)
[2023-03-26] MEDS: Ondansetron 8 MG Tablet PO (13:18)
[2023-03-26] MEDS: Gabapentin 300 MG Capsule PO (13:18)
[2023-03-26 14:28] LABS: Hematocrit 38.5 % (37-47)
--- NOTE | 2023-03-26 20:17 | EX.PCM.CON.G ---
HPI Consult Data Date of Consult: 03/26/23 HPI Narrative Reason for Consultation: Hematemesis HPI Narrative: SOFIA LAGUERRE, is a 28 F who presents requesting detox from alcohol. She is a history of alcoholism and drinks a half a gallon of vodka a day. She states she was tapering down her alcohol intake yesterday and her last drink was sometime overnight. She is shaky and nauseated. She has had blood in her vomitus overnight. Patient was here about 3 weeks ago for detox and signed out AMA after 2 days. I was called to see the patient due to some hematemesis. She is not take any blood thinners or nonsteroidal. She has no bleeding diagnoses. She has no of bleeding diathesis or family history of bleeding disorder. In the ED white blood cell count of 16.7, hemoglobin of 14, platelet count of 513. Her bilirubin is 0.8, AST 91, ALT 67, alkaline phosphatase 101, total protein 8.7. INR is not known. Her alcohol level is 61. Repeat hemoglobin is 13 with hematocrit of 38.5. PFSH Medical History Alcohol abuse Anxiety Bipolar disorder Depression GERD (gastroesophageal reflux disease) Migraines Smoker Home Medications benztropine 2 mg tablet 1 mg PO QHS Check with primary doctor 03/02/23 [History Last Taken 02/25/23] doxepin 50 mg capsule 50 mg PO QHS Check with primary doctor 03/02/23 [History Last Taken 02/27/23] prazosin 1 mg capsule 1 mg PO QHS Check with primary doctor 03/02/23 [History Last Taken 02/27/23] quetiapine 200 mg tablet 200 mg PO QHS Check with primary doctor 03/02/23 [History Last Taken 02/27/23] Allergy/AdvReac Type Severity Reaction Status Date / Time hydroxyzine [From Vistaril] Allergy Intermediate Rash Verified 03/26/23 10:02 Family History (Updated 03/26/23 @ 11:[address] Yonny Holt DO) Mother Alcoholism Other Colon cancer Diabetes Hypertension Prostate cancer Surgical History H/O: Social History household members: none Smoking Status: Current every day smoker tobacco type: cigarettes alcohol intake: current alcohol intake frequency: 3 or more drinks per day Alcohol type: hard liquor ROS ROS Narrative All review of systems were negative except as mentioned above in the history of present illness and the other review of systems. Physical Exam Const alert and no apparent distress HEENT normocephalic and head/scalp atraumatic Resp normal respiratory effort, no retractions, no use of accessory muscles and clear to auscultation bilaterally Cardio regular rate, regular rhythm, S1 normal heart sound and S2 normal heart sound GI normal to inspection, nondistended, normoactive bowel sounds, soft to palpation, non-tender and non-distended Extremity normal to inspection and full ROM Neuro Sensorium / Orientation: awake Lab / Micro Data 03/26/23 12:42 03/26/23 10:35 Labs: Laboratory Results - last 24 hr 03/26/23 10:35: WBC 16.7 H, RBC 4.69, Hgb 14.1, Hct 41.1, MCV 87.6, MCH 30.1, MCHC 34.3, RDW Std Deviation 45.5 H, RDW Coeff of Ho 14.4, Plt Count 513 H, MPV 8.5, Immature Gran % (Auto) 0.300, Neut % (Auto) 86.6 H, Lymph % (Auto) 9.3 L, [place] % (Auto) 3.5, Eos % (Auto) 0.0, Baso % (Auto) 0.3, Absolute Neuts (auto) 14.5 H, Absolute Lymphs (auto) 1.55, Nucleated RBC % 0, Sodium 134 L, Potassium 3.9, Chloride 95 L, Carbon Dioxide 17.0 L, Anion Gap 22 H, BUN 18, Creatinine 0.83, Estim Creat Clear Calc 103.58, Est GFR (MDRD) Af Amer 104, Est GFR (MDRD) Non-Af 86, BUN/Creatinine Ratio 21.7 H, Glucose 120 H, Calcium 9.0, Total Bilirubin 0.80, AST 91 H, ALT 67 H, Alkaline Phosphatase 101, Total Protein 8.7 H, Albumin 4.1, Globulin 4.6 H, Albumin/Globulin Ratio 0.9, Serum , Qual NEGATIVE, Ethyl Alcohol 61.0 03/26/23 12:42: Hgb 13.0, Hct 38.5 Assessment & Plan Assessment/Plan (1) Upper GI bleed: PLAN: Differential diagnosis for hematemesis in her is possibly erosive esophagitis, Ajnny-Mao tear, alcoholic gastritis. She has not shown any signs of active bleeding at this time. I agree with continuing PPI and antiemetics. If she continues to have a decrease in hemoglobin and if she definitely continues to have upper GI bleed then she will need upper endoscopy. For now we will just follow her H&H. Charges/Coding Visit Charges Inpatient E&M: 24821 Init Hosp L2
[2023-03-26 20:18] VITALS: BP 132/84; PULSE 115; RESP 16; TEMP 36.6; O2SAT 99
[2023-03-26] MEDS: Dicyclomine 10 MG Capsule 20 MG PO (20:32)
[2023-03-26] MEDS: Acetaminophen 500 MG Tablet PO (20:33)
[2023-03-26] MEDS: Scopolamine 1mg/72hr Patch 1 PATCH TD (21:28)
[2023-03-26] MEDS: Doxazosin 1 MG Tablet PO (21:34)
[2023-03-26] MEDS: Benztropine 2 MG Tablet 1 MG PO (21:34)
[2023-03-26] MEDS: DOXEPIN HCL 50 MG CAPSULE PO (21:34)
[2023-03-26] MEDS: QUEtiapine 100 MG Tablet 200 MG PO (21:35)
[2023-03-27] MEDS: Phenobarbital 32.4 MG Tablet 64.8 MG PO ×6 (01:08→21:11)
[2023-03-27] MEDS: Gabapentin 300 MG Capsule PO ×3 (01:08→17:36)
[2023-03-27 01:10] VITALS: BP 100/52; PULSE 109; RESP 16; TEMP 36.6; O2SAT 99
[2023-03-27 05:22] VITALS: BP 111/60; PULSE 73; RESP 16; TEMP 36.7; O2SAT 98
[2023-03-27 07:02] LABS: Absolute Lymphocyte Count 4.91 X10^3/uL (0.83-4.51); Basophil# 0.04 X10^3/uL; Basophil% 0.5 % (0-1); Eosinophil# 0.17 X10^3/uL; Hemoglobin 10.9 g/dL (12.0-15.0); Lymphocyte # 4.91 X10^3/ul (0.83-4.51); Lymphocyte % 56.6 % (19-41); Mean Corp Hgb Conc 32.1 g/dL (32-36); Mean Corpuscular Hgb 29.2 pg (27.0-32.0); Mean Corpuscular Volume 91.2 fL (81-99); Mean Platelet Vol. 9.3 fl (6.2-12.0); Monocyte# 0.52 X10^3/uL; NRBC Flagged by Analyzer 0 % (0-5); Neutrophil # 3.02 X10^3/uL (2.7-7.7); Neutrophil % 34.8 % (47-70); Platelet Count 303 K/mm3 (150-450); RBC Distribution Width CV 14.3 % (11.6-14.6); RBC Distribution Width SD 48.1 fl (35.1-43.9); Red Blood Count 3.73 M/mm3 (4.2-5.4); White Blood Count 8.7 K/mm3 (4.4-11.0)
[2023-03-27 07:06] LABS: International Normalized Ratio 1.1; Prothrombin Time (Protime)PT. 13.8 SECONDS (11.7-14.9)
--- NOTE | 2023-03-27 07:10 | PN.HOSP_ITS ---
Reason for Visit Reason for Visit: Diagnoses Alcohol use, unspecified with withdrawal delirium (03/26/23) Gastrointestinal hemorrhage, unspecified (03/26/23) Subjective Subjective Feels better. No further N/V. No further hematemasis. Objective Data Objective Data Vital Signs: Vital Signs Temp Pulse Resp BP Pulse Ox O2 Del Method 36.7 C 73 16 111/60 98 Room Air 03/27/23 05:22 03/27/23 05:22 03/27/23 05:22 03/27/23 05:22 03/27/23 05:22 03/27/23 05:22 Oxygen Delivery Method Room Air Weight: 81.193 kg Body Mass Index (BMI) 26.4 Intake & Output: Intake and Output for Last 24 Hours 03/25/23 03/26/23 03/27/23 23:59 23:59 23:59 Intake Total 1330 / 1330 200 / 200 Balance 1330 / 1330 200 / 200 Lab / Micro Data 03/27/23 11:50 03/27/23 05:52 Labs: Laboratory Results - last 24 hr 03/26/23 10:35: WBC 16.7 H, RBC 4.69, Hgb 14.1, Hct 41.1, MCV 87.6, MCH 30.1, MCHC 34.3, RDW Std Deviation 45.5 H, RDW Coeff of Ho 14.4, Plt Count 513 H, MPV 8.5, Immature Gran % (Auto) 0.300, Neut % (Auto) 86.6 H, Lymph % (Auto) 9.3 L, [place] % (Auto) 3.5, Eos % (Auto) 0.0, Baso % (Auto) 0.3, Absolute Neuts (auto) 14.5 H, Absolute Lymphs (auto) 1.55, Nucleated RBC % 0, Sodium 134 L, Potassium 3.9, Chloride 95 L, Carbon Dioxide 17.0 L, Anion Gap 22 H, BUN 18, Creatinine 0.83, Estim Creat Clear Calc 103.58, Est GFR (MDRD) Af Amer 104, Est GFR (MDRD) Non-Af 86, BUN/Creatinine Ratio 21.7 H, Glucose 120 H, Calcium 9.0, Total Bilirubin 0.80, AST 91 H, ALT 67 H, Alkaline Phosphatase 101, Total Protein 8.7 H, Albumin 4.1, Globulin 4.6 H, Albumin/Globulin Ratio 0.9, Serum , Qual NEGATIVE, Ethyl Alcohol 61.0 03/26/23 12:42: Hgb 13.0, Hct 38.5 03/27/23 05:52: PT 13.8, INR 1.1 Physical Exam Const alert and no apparent distress HEENT head/scalp atraumatic and moist oral mucous membranes Resp normal respiratory effort, no retractions, no use of accessory muscles and clear to auscultation bilaterally Cardio regular rate, regular rhythm, S1 normal heart sound and S2 normal heart sound GI normal to inspection, nondistended, normoactive bowel sounds, soft to palpation and non-tender Extremity normal to inspection Neuro oriented x3 Psych affect normal Assessment & Plan Assessment/Plan (1) Alcohol withdrawal delirium, acute, hyperactive: PLAN: Active patient quit drinking on the March 25 Phenobarbital taper Additional agents to help with somatic complaints associated with her withdrawal. 182 with cysts and outpatient follow-up Patient had left AGAINST MEDICAL ADVICE during last admission. Patient states that she is more committed at this time. (2) Upper GI bleed: PLAN: Suspect due to Janny-Mao tear from retching Monitor hemoglobin Since patient is still nauseated, will give her IV fluids Start Protonix GI following. ROSE MARY Lewis Friend: no plans for endoscopy at this time. (3) Acute blood loss anemia: PLAN: Hg dropped from 14.1 to 10.9. 2/2 GIB Monitor No need to transfuse at this time. PLAN: Plan Chronic psychiatric conditions * Bipolar disorder: Complicates care and long-term recovery. Currently stable. Continue with quetiapine, doxepin and benztropine VTE prophylaxis with SCDs Charges/Coding Visit Charges Inpatient E&M: 25560 Subs Hosp L2
[2023-03-27 07:34] LABS: ALB/GLOB Ratio 0.8 RATIO (0.9-2.4); AST(SGOT) 65 U/L (15-37); Alanine Aminotransfer ALT/SGPT 48 U/L (13-56); Albumin, Serum 3.1 g/dL (3.2-5.0); Alkaline Phosphatase 74 U/L (45-117); Anion Gap 6 (5-15); BUN 18 mg/dL (7-18); BUN/Creat Ratio 28.6 RATIO (10-20); Calcium,Total 8.7 mg/dL (8.5-10.1); Chloride 100 mmol/L (98-107); Creatinine, Serum 0.63 mg/dL (0.55-1.02); EST Glomerular Filtration Rate 118 mL/min (>60); Est Glom Filt Rate - Afr Amer 143 mL/min (>60); Estimated Creatinine Clearance 136.46 ml/min; Globulin 3.7 g/dL (2.2-4.2); Glucose 78 mg/dL (74-106); Potassium 3.3 mmol/L (3.5-5.1); Protein, Total 6.8 g/dL (6.4-8.2); Sodium Level 133 mmol/L (136-145)
[2023-03-27] MEDS: Folic Acid 1 MG Tablet PO (09:38)
[2023-03-27] MEDS: Thiamine Hydrochloride 100 MG Tablet PO (09:38)
[2023-03-27 09:45] VITALS: BP 101/55; PULSE 74; RESP 18; TEMP 36.8; O2SAT 98
[2023-03-27 12:07] LABS: Hematocrit 36.4 % (37-47); Hemoglobin 11.9 g/dL (12.0-15.0)
[2023-03-27 15:03] VITALS: BP 111/66; PULSE 64; RESP 18; TEMP 36.8; O2SAT 98
[2023-03-27] MEDS: Ondansetron 8 MG Tablet PO (16:09)
[2023-03-27] MEDS: Dicyclomine 10 MG Capsule 20 MG PO (16:10)
--- NOTE | 2023-03-27 17:04 | EX.PCM.PN.GI ---
Subjective Subjective Patient did not have any further hematemesis overnight. She said that the Ativan did help her. She is not as nauseous with the scopolamine patch. Objective Data Objective Data Vital Signs: Vital Signs Temp Pulse Resp BP Pulse Ox O2 Del Method 98.3 F 64 18 111/66 98 Room Air 03/27/23 15:03 03/27/23 15:03 03/27/23 15:03 03/27/23 15:03 03/27/23 15:03 03/27/23 15:03 Oxygen Delivery Method Room Air Weight: 179 lb Body Mass Index (BMI) 26.4 Intake & Output: Intake and Output for Last 24 Hours 03/25/23 03/26/23 03/27/23 23:59 23:59 23:59 Intake Total 1330 / 1330 1260 / 1260 Balance 1330 / 1330 1260 / 1260 Lab / Micro Data 03/27/23 11:50 03/27/23 05:52 Labs: Laboratory Results - last 24 hr 03/27/23 05:52: WBC 8.7, RBC 3.73 L, Hgb 10.9 L, Hct 34.0 L, MCV 91.2, MCH 29.2, MCHC 32.1 D, RDW Std Deviation 48.1 H, RDW Coeff of Ho 14.3, Plt Count 303, MPV 9.3, Immature Gran % (Auto) 0.100, Neut % (Auto) 34.8 L, Lymph % (Auto) 56.6 H, [place] % (Auto) 6.0, Eos % (Auto) 2.0, Baso % (Auto) 0.5, Absolute Neuts (auto) 3.0, Absolute Lymphs (auto) 4.91 H, Nucleated RBC % 0, PT 13.8, INR 1.1, Sodium 133 L, Potassium 3.3 L, Chloride 100, Carbon Dioxide 27.0, Anion Gap 6, BUN 18, Creatinine 0.63, Estim Creat Clear Calc 136.46, Est GFR (MDRD) Af Amer 143, Est GFR (MDRD) Non-Af 118, BUN/Creatinine Ratio 28.6 H, Glucose 78, Calcium 8.7, Total Bilirubin 1.00, AST 65 H, ALT 48, Alkaline Phosphatase 74, Total Protein 6.8, Albumin 3.1 L, Globulin 3.7, Albumin/Globulin Ratio 0.8 L 03/27/23 11:50: Hgb 11.9 L, Hct 36.4 L Physical Exam Const alert and no apparent distress HEENT head/scalp atraumatic and moist oral mucous membranes Resp normal respiratory effort, no retractions, no use of accessory muscles and clear to auscultation bilaterally Cardio regular rate, regular rhythm, S1 normal heart sound and S2 normal heart sound GI normal to inspection, nondistended, normoactive bowel sounds, soft to palpation and non-tender Extremity normal to inspection Neuro oriented x3 Psych affect normal Assessment & Plan Assessment/Plan (1) Upper GI bleed: PLAN: Differential diagnosis for hematemesis in her is possibly erosive esophagitis, Janny-Mao tear, alcoholic gastritis. She has not shown any signs of active bleeding at this time. I agree with continuing PPI and antiemetics. If she continues to have a decrease in hemoglobin and if she definitely continues to have upper GI bleed then she will need upper endoscopy. For now we will just follow her H&H. PLAN: Plan 03/27: Patient is doing well and is able to tolerate liquids today. She has some mild nausea. She denies any chest pain or shortness of breath. She is not having any more signs of hematemesis. Continue current management with PPI , scopolamine and as needed Ativan. Charges/Coding Visit Charges Inpatient E&M: 13535 Subs Hosp L2
[2023-03-27 17:31] VITALS: BP 117/66; PULSE 64; RESP 18; TEMP 37.2; O2SAT 98
[2023-03-27 21:03] VITALS: BP 120/68; PULSE 93; RESP 18; TEMP 36.8; O2SAT 93
[2023-03-27] MEDS: DOXEPIN HCL 50 MG CAPSULE PO (21:11)
[2023-03-27] MEDS: QUEtiapine 100 MG Tablet 200 MG PO (21:12)
[2023-03-27] MEDS: Doxazosin 1 MG Tablet PO (21:12)
[2023-03-27] MEDS: Benztropine 2 MG Tablet 1 MG PO (21:12)
[2023-03-27 23:23] LABS: Barbiturate Urine VISTA POSITIVE (< 200 ng/mL); Benzodiazepine Urine VISTA NEGATIVE (< 200 ng/mL); Cocaine Urine VISTA NEGATIVE (< 300 ng/mL); Ecstacy Urine VISTA NEGATIVE (< 500 ng/mL); Methadone Urine VISTA NEGATIVE (< 300 ng/mL); PCP Urine VISTA NEGATIVE (< 25 ng/mL); THC Urine VISTA NEGATIVE (< 50 ng/mL)
[2023-03-27 23:24] LABS: Amphetamine Urine VISTA NEGATIVE (<1000 ng/mL); Vista UDS pH Range 6
[2023-03-28] MEDS: Phenobarbital 32.4 MG Tablet 64.8 MG PO ×4 (01:44→13:13)
[2023-03-28 03:00] VITALS: BP 110/66; PULSE 68; RESP 16; TEMP 36.7; O2SAT 96
[2023-03-28 06:42] LABS: Absolute Lymphocyte Count 4.08 X10^3/uL (0.83-4.51); Absolute Neutrophil Count 3.6 X10^3/uL (2.0-7.7); Basophil# 0.04 X10^3/uL; Basophil% 0.5 % (0-1); Eosinophil# 0.31 X10^3/uL; Eosinophils% 3.7 % (0-5); Hematocrit 33.7 % (37-47); Hemoglobin 11.1 g/dL (12.0-15.0); Lymphocyte # 4.08 X10^3/ul (0.83-4.51); Lymphocyte % 48.4 % (19-41); Mean Corp Hgb Conc 32.9 g/dL (32-36); Mean Corpuscular Hgb 30.2 pg (27.0-32.0); Mean Corpuscular Volume 91.8 fL (81-99); Mean Platelet Vol. 9.2 fl (6.2-12.0); Monocyte# 0.43 X10^3/uL; Monocyte% 5.1 % (0-10); NRBC Flagged by Analyzer 0 % (0-5); Neutrophil # 3.56 X10^3/uL (2.7-7.7); Neutrophil % 42.2 % (47-70); Platelet Count 235 K/mm3 (150-450); RBC Distribution Width CV 13.9 % (11.6-14.6); RBC Distribution Width SD 47.3 fl (35.1-43.9); Red Blood Count 3.67 M/mm3 (4.2-5.4); White Blood Count 8.4 K/mm3 (4.4-11.0)
[2023-03-28] MEDS: Folic Acid 1 MG Tablet PO (07:44)
[2023-03-28] MEDS: Thiamine Hydrochloride 100 MG Tablet PO (07:44)
[2023-03-28 09:52] VITALS: BP 116/66; PULSE 86; PULSE 90; RESP 16; TEMP 36.9; O2SAT 97
[2023-03-28] MEDS: Pantoprazole Sodium 40 MG Tablet PO (10:05)
[2023-03-28] MEDS: Acetaminophen 500 MG Tablet PO (10:09)
--- NOTE | 2023-03-28 12:43 | PCM.PN.HOSP ---
Reason for Visit Reason for Visit: Request for alcohol detox Subjective Subjective Ms. Garcia is a 28-year-old white female who presented to the emergency department was current Hospital on 03/26/2023 requesting detox from alcohol. Her last drink was the day prior to presentation and she was in withdrawal on presentation complaining of diffuse myalgias as well as vomiting. Patient reported she had 4-5 episodes of hematemesis but had not had any since 4 AM on the day of presentation. She evidently was here in February but left AGAINST MEDICAL ADVICE at that time and patient reported she felt cramped up in the room and that is why she left. She did indicate she was motivated to quit and was drinking approximately 1/2 gallon of vodka daily on presentation. Gastroenterology was consulted for her hematemesis and felt that this was likely a Janny-Mao tear. She had stable hemoglobin and no further work-up was recommended at that time. She was placed on IV PPI twice daily which has now been transitioned to oral PPI. She states overall she is feeling better with no further episodes of vomiting. She did have 1 episode of nausea overnight but it is better this morning. She states that is fairly typical for her withdrawal symptoms. She currently is complaining of some intermittent hallucinations. Overall, she is indicating she is feeling better. Objective Data Objective Data Vital Signs: Vital Signs Temp Pulse Resp BP Pulse Ox O2 Del Method 98.4 F 86 16 116/66 97 Room Air 03/28/23 09:52 03/28/23 09:52 03/28/23 09:52 03/28/23 09:52 03/28/23 09:52 03/28/23 09:52 Oxygen Delivery Method Room Air Weight: 81.193 kg Body Mass Index (BMI) 26.4 Intake & Output: Intake and Output for Last 24 Hours 03/26/23 03/27/23 03/28/23 23:59 23:59 23:59 Intake Total 1330 / 1330 2070 / 2350 280 / 280 Balance 1330 / 1330 2070 / 2350 280 / 280 Lab / Micro Data 03/28/23 05:25 03/27/23 05:52 Labs: Laboratory Results - last 24 hr 03/26/23 22:50: Urine Opiates Screen NEGATIVE, Urine Methadone Screen NEGATIVE, Ur Barbiturates Screen POSITIVE H, Ur Phencyclidine Scrn NEGATIVE, Ur Amphetamines Screen NEGATIVE, MDMA (Ecstasy) Screen NEGATIVE, U Benzodiazepines Scrn NEGATIVE, Urine Cocaine Screen NEGATIVE, U Cannabinoids Screen NEGATIVE, Ur Drug Screen Comment 03/28/23 05:25: WBC 8.4, RBC 3.67 L, Hgb 11.1 L, Hct 33.7 L, MCV 91.8, MCH 30.2, MCHC 32.9, RDW Std Deviation 47.3 H, RDW Coeff of Ho 13.9, Plt Count 235, MPV 9.2, Immature Gran % (Auto) 0.100, Neut % (Auto) 42.2 L, Lymph % (Auto) 48.4 H, [place] % (Auto) 5.1, Eos % (Auto) 3.7, Baso % (Auto) 0.5, Absolute Neuts (auto) 3.6, Absolute Lymphs (auto) 4.08, Nucleated RBC % 0 Physical Exam Const alert, oriented x3, no apparent distress, average body habitus and well nourished Constitutional Narrative: Younger, middle-aged, white female, lying in bed, appears comfortable and nontoxic HEENT head/scalp atraumatic and moist oral mucous membranes Head and Scalp: normocephalic Resp normal respiratory effort, no retractions, no use of accessory muscles and clear to auscultation bilaterally Auscultation: Negative for rales, rhonchi or wheezes Cardio regular rate, regular rhythm, S1 normal heart sound, S2 normal heart sound, no murmurs, no rub, no gallops and no clicks GI normal to inspection, nondistended, normoactive bowel sounds, soft to palpation and non-tender Extremity no clubbing, cyanosis or edema Neuro oriented x3, CN's II-XII intact bilaterally and moves all extremities Speech: speech normal Psych Psych Narrative: At ACT is flattened with somewhat depressed however eye contact is good Assessment & Plan Assessment/Plan (1) Acute blood loss anemia: (2) Upper GI bleed: (3) Alcohol withdrawal delirium, acute, hyperactive: (4) Desire for detoxification: PLAN: Plan Acute alcohol withdrawal -Continue phenobarbital taper -Last drink was on March 25, 2023 -Continue thiamine and folate -Continue supplemental medication for symptom management with regards to her withdrawal -180 follow-up pending however per patient she plans on outpatient follow-up Upper GI bleed -Suspect related to Janny-Mao tear from vomiting -Hemoglobin stable -Discontinue IV fluids as patient is tolerating p.o. now -Transition Protonix from IV to oral Mild acute blood loss anemia -Hemoglobin stabilized -No signs of acute bleeding at this time -Repeat CBC in a.m. Bipolar disorder -Continue home baseline medications Tobacco abuse -Nicotine patch -Recommend cessation DVT prophylaxis -Low risk -Recommend early and frequent ambulation Charges/Coding Visit Charges Inpatient E&M: 10522 Subs Hosp L2
--- NOTE | 2023-03-28 15:47 | PCM.PN.BLA ---
Progress Note Elected to leave AMA. This is her second AMA discharge within the last 30 days and per guidelines she will not be able to be readmitted for detox for 30 days after this. The next time she could be eligible for detox admission with the ramp program would be on 04/28/2023.
--- NOTE | 2023-03-28 15:48 | NURSING ---
pt wanting to leave AMA.. states she keeps thinking about her bills piling up and about her landlord. AMA paper signed. Dr. Venegas notified and wanted me to inform pt that since she had left AMA twice in last month that she must wait 30days prior to coming back in. Pt informed and stated ok
--- NOTE | 2023-03-28 16:42 | PN.GI_ITS ---
Subjective Subjective Came to see patient to see how she is doing and she has elected to leave AMA. She says that her nausea is a lot better and she is not having abdominal pain so she wants to leave the hospital. She says that she knows the consequences of leaving AMA and has agreed to accept those consequences. Objective Data Objective Data Vital Signs: Vital Signs Temp Pulse Resp BP Pulse Ox O2 Del Method 98.4 F 86 16 116/66 97 Room Air 03/28/23 09:52 03/28/23 09:52 03/28/23 09:52 03/28/23 09:52 03/28/23 09:52 03/28/23 09:52 Oxygen Delivery Method Room Air Weight: 179 lb Body Mass Index (BMI) 26.4 Intake & Output: Intake and Output for Last 24 Hours 03/26/23 03/27/23 03/28/23 23:59 23:59 23:59 Intake Total 1330 / 1330 2070 / 2350 280 / 280 Balance 1330 / 1330 2070 / 2350 280 / 280 Medical Nutrition Assessment Dietitian: Malnutrition Criteria Met Start: 03/28/23 15:58 Freq: Status: Active Protocol: Document 03/28/23 15:59 SLA (Rec: 03/28/23 15:59 SLA [id number]) Nutrition Malnutrition Evidence of Malnutrition Exists Yes Malnutrition (severe): Social/Behavioral/ Environmental Evidenced By Suboptimal Energy Intake ( Severe),Weight Loss (Severe) Clinical Problem Chronic Disease or Condition Related Malnutrition Etiology related to alcohol abuse and n /v ship's captain so that pt having inadequate energy intake Signs/Symptoms as evidenced by <75% of est nutritional needs x 1 wk and 4 .9% unintended wt loss x < 1 mo ship's captain Status Active Problem Recommendation Dietitian Recommendations/Changes Continue liberal regular diet d/t signs and symptoms of malnutrition Provide ONS if pt agreeable to nutrition supplements Continue to monitor for changes in pt nutritional status Lab / Micro Data 03/28/23 05:25 03/27/23 05:52 Labs: Laboratory Results - last 24 hr 03/26/23 22:50: Urine Opiates Screen NEGATIVE, Urine Methadone Screen NEGATIVE, Ur Barbiturates Screen POSITIVE H, Ur Phencyclidine Scrn NEGATIVE, Ur Amphetamines Screen NEGATIVE, MDMA (Ecstasy) Screen NEGATIVE, U Benzodiazepines Scrn NEGATIVE, Urine Cocaine Screen NEGATIVE, U Cannabinoids Screen NEGATIVE, Ur Drug Screen Comment 03/28/23 05:25: WBC 8.4, RBC 3.67 L, Hgb 11.1 L, Hct 33.7 L, MCV 91.8, MCH 30.2, MCHC 32.9, RDW Std Deviation 47.3 H, RDW Coeff of Ho 13.9, Plt Count 235, MPV 9 .2, Immature Gran % (Auto) 0.100, Neut % (Auto) 42.2 L, Lymph % (Auto) 48.4 H, [place] % (Auto) 5.1, Eos % (Auto) 3.7, Baso % (Auto) 0.5, Absolute Neuts (auto) 3.6, Absolute Lymphs (auto) 4.08, Nucleated RBC % 0 Physical Exam Const alert and no apparent distress HEENT head/scalp atraumatic and moist oral mucous membranes Resp normal respiratory effort, no retractions, no use of accessory muscles and clear to auscultation bilaterally Cardio regular rate, regular rhythm, S1 normal heart sound and S2 normal heart sound GI normal to inspection, nondistended, normoactive bowel sounds, soft to palpation and non-tender Extremity normal to inspection Neuro oriented x3 Psych affect normal Assessment & Plan Assessment/Plan (1) Upper GI bleed: PLAN: Differential diagnosis for hematemesis in her is possibly erosive esophagitis, Janny-Mao tear, alcoholic gastritis. She has not shown any signs of active bleeding at this time. I agree with continuing PPI and antiemetics. If she continues to have a decrease in hemoglobin and if she definitely continues to have upper GI bleed then she will need upper endoscopy. For now we will just follow her H&H. PLAN: Plan 7/2: Patient is doing well and is able to tolerate liquids today. She has some mild nausea. She denies any chest pain or shortness of breath. She is not having any more signs of hematemesis. Continue current management with PPI , s copolamine and as needed Ativan. 7/3: Patient laying in bed without any problems. She has elected not to follow- up with myself in the clinic. She can take omeprazole [id number] for the next 8 weeks and slowly wean off of it. Charges/Coding Visit Charges Inpatient E&M: 99120 Subs Hosp L3
== END 2023-03-28 16:44 | disposition left against medical advice (07) | DRG 770 ==
LOC: ED 11:06 → MS3 11:34
PROVIDERS: Emergency Provider Emergency Medicine; Visit Provider Internal Medicine
DX: F10.231 Alcohol dependence with withdrawal delirium (principal); E43 Unspecified severe protein-calorie malnutrition; K22.11 Ulcer of esophagus with bleeding; K22.6 Gastro-esophageal laceration-hemorrhage syndrome; K29.21 Alcoholic gastritis with bleeding; F31.9 Bipolar disorder, unspecified; D62 Acute posthemorrhagic anemia; F17.210 Nicotine dependence, cigarettes, uncomplicated; Y90.3 Blood alcohol level of 60-79 mg/100 ml; Z68.26 Body mass index [BMI] 26.0-26.9, adult; Z53.29 Procedure and treatment not carried out because of patient's decision for other reasons; Z79.899 Other long term (current) drug therapy
CPT/HCPCS: 36415; 80053; 80307; 82077; 84703; 85014; 85018; 85025; 85610; 99284; J7030; J2405